=== PATIENT | male | born 1945 | race Caucasian/White ===

== ENCOUNTER 2017-11-13 08:36 | Day surgery (SDC) | payer MEDICARE ==
[~2017-11-13 08:36] MED LIST: ALLOPURINOL100 MG PO; AMLODIPINE10 MG PO; ASPIRIN EC81 MG PO; ATENOLOL100 MG; ATENOLOL100 MG PO; AVELOX400 MG OR; CIPRO XR500 MG PO; CIPROFLOXACN500 MG PO; COZAAR100 MG PO; FERROUS SULF325 M1 PO; FIBER THERAP0.52 GM PO; FLEXERIL PO; FLEXERIL10 MG PO; GABAPENTIN300 MG PO; HYDROCHLOROTH12.5 M1 PO; LEVAQUIN750 MG; LEVAQUIN750 MG PO; LORTAB 7.5 PO; LOSARTAN POT50 MG PO; METAMUCIL28.3 %; METFORMIN500 M1 OR; METFORMIN500 M1 PO; MILK THISTLE140 M1; MINOCYCLINE100 MG PO; MULTIVITAM10 OR; NAPROSYN500 MG PO; NEURONTIN300 MG OR; NEURONTIN600 MG OR; NEURONTIN600 MG PO; OCUVIT1; OCUVIT1 OR; PERCOCET 5/325M1 TAB PO; POTASSIUM; PRAVASTATIN10 MG PO; PRILOSEC20 MG; PRILOSEC20 MG OR; PRILOSEC20 MG PO; PRILOSEC20 MG/CAP PO; TENORMIN OR; TIZANIDINE2 MG PO; ZITHROMAX250 MG PO; ZOFRAN ODT4 MG SL; ZYLOPRIM300 MG OR; [UNRECOGNIZED DRUG - CODE]; allo OR
[2017-11-13 12:04] VITALS: BP 148/73
== END 2017-11-13 12:11 | disposition home or self-care (01) ==
LOC: ORM 08:36
PROVIDERS: ATTEND Surgery
PROC: 0DJDXZZ Inspection of Lower Intestinal Tract, External Approach (ICD-10-PCS; principal; 2017-11-13)
DX: K62.89 Other specified diseases of anus and rectum (principal)

== ENCOUNTER → 2018-07-02 | Outpatient (REF) | payer MEDICARE | END | disposition home or self-care (01) | LOC: NUCMED 07:30 → STRESS 07:33 | PROVIDERS: ATTEND Internal Medicine | DX: R00.2 Palpitations (principal); I20.9 Angina pectoris, unspecified | CPT/HCPCS: A9502; J2785 ==

== ENCOUNTER → 2018-07-08 | Outpatient (REF) | payer MEDICARE ==
[2018-07-08 09:38] LABS: ALBUMIN 4.1 g/dL (3.2-5.0); ALKALINE PHOSPHATASE 59 u/l (38-126); ANION GAP 16 (6-22 (CALC)); BILIRUBIN, TOTAL 0.6 mg/dL (0.0-1.4); BUN 14 mg/dL (8-23); BUN/CREATININE RATIO 15 (12-20 (CALC)); CARBON DIOXIDE 28 mmol/l (22-30); CHLORIDE 101 mmol/l (95-108); CREATININE 0.9 mg/dL (0.7-1.3); GFR > 60 ML/MIN (>=60 (CALC)); GFR FOR AFR.AMER. > 60 ML/MIN (>=60 (CALC)); POTASSIUM 4.5 mmol/l (3.5-5.1); SGOT/AST 28 u/l (19-48); SODIUM 140 mmol/l (137-146); TOTAL PROTEIN 7.1 g/dL (6.3-8.2)
== END | disposition home or self-care (01) ==
LOC: LAB 08:27
PROVIDERS: ATTEND Internal Medicine
DX: E11.42 Type 2 diabetes mellitus with diabetic polyneuropathy (principal)

== ENCOUNTER 2019-01-14 19:35 | Emergency (ER) | payer MEDICARE ==
[~2019-01-14] VITALS: Ht 175.3 cm; Wt 90.9 kg
[2019-01-14] MEDS ORDERED: TRAMADOL HCL50 MG PO (20:13)
[2019-01-14] MEDS ORDERED: ELIQUIS5 MG PO (20:14)
[2019-01-14] MEDS ORDERED: HYDROCO/APAP1 TA9 PO (20:14)
[2019-01-14 20:29] LABS: HEMATOCRIT 34.9 % (39.0-50.0); IMMATURE GRANULOCYTES 0.4 % (0.0-5.0); MEAN CELL VOLUME 101.5 fL CALC (80.0-100.0); MEAN CORPUSCULAR HGB 34.9 pG CALC (26.0-32.0); MEAN CORPUSCULAR HGB CONC 34.4 g/L CALC (32.0-36.0); NEUT# 4.47 thou/uL (1.82-7.42); RED BLOOD COUNT 3.44 mill/uL (4.70-6.10); RED CELL DISTRI WIDTH 14.6 % (11.5-15.5)
[2019-01-14 20:32] LABS: URINE BILIRUBIN - DIPSTICK NEGATIVE (NEGATIVE); URINE BLOOD DIPSTICK NEGATIVE (NEGATIVE); URINE COLOR YELLOW; URINE GLUCOSE - DIPSTICK NEGATIVE (NEGATIVE); URINE KETONE NEGATIVE (NEGATIVE); URINE LEUK ESTERASE NEGATIVE (NEGATIVE); URINE NITRITE - DIPSTICK NEGATIVE (Negative); URINE PROTEIN - DIPSTICK NEGATIVE (NEG-TRACE); URINE SPECIFIC GRAVITY 1.025; URINE UROBILINOGEN - DIPSTICK 0.2 E.U./dL (0.2)
[2019-01-14 20:46] LABS: ALBUMIN 4.2 g/dL (3.2-5.0); ALKALINE PHOSPHATASE 52 u/l (38-126); ANION GAP 16 (6-22 (CALC)); BILIRUBIN, TOTAL 0.8 mg/dL (0.0-1.4); BUN 13 mg/dL (8-23); BUN/CREATININE RATIO 17 (12-20 (CALC)); CARBON DIOXIDE 26 mmol/l (22-30); CHLORIDE 100 mmol/l (95-108); CREATININE 0.8 mg/dL (0.7-1.3); GFR > 60 ML/MIN (>=60 (CALC)); GFR FOR AFR.AMER. > 60 ML/MIN (>=60 (CALC)); POTASSIUM 4.2 mmol/l (3.5-5.1); SGOT/AST 20 u/l (19-48); SODIUM 137 mmol/l (137-146); TOTAL PROTEIN 7.2 g/dL (6.3-8.2)
[2019-01-14 20:57] LABS: MYOGLOBIN 32 ng/mL (0 - 121)
[2019-01-14 22:19] VITALS: BP 156/77
== END 2019-01-14 22:18 | disposition home or self-care (01) ==
LOC: ED 19:35
PROVIDERS: Family Medicine
DX: I26.99 Other pulmonary embolism without acute cor pulmonale (principal); G89.18 Other acute postprocedural pain; I10 Essential (primary) hypertension; E11.40 Type 2 diabetes mellitus with diabetic neuropathy, unspecified; Z79.84 Long term (current) use of oral hypoglycemic drugs; Z98.890 Other specified postprocedural states
CPT/HCPCS: Q9967

== ENCOUNTER 2019-04-13 17:11 | Emergency (ER) | payer MEDICARE ==
[~2019-04-13] VITALS: Ht 175.3 cm; Wt 90.9 kg
[~2019-04-13 17:11] MED LIST changes: +ELIQUIS5 MG PO; +HYDROCO/APAP1 TA9 PO; +TRAMADOL HCL50 MG PO
[2019-04-13 17:56] LABS: HEMATOCRIT 38.2 % (39.0-50.0); HEMOGLOBIN 13.2 g/dl (14.0-18.0); IMMATURE GRANULOCYTES 0.4 % (0.0-5.0); MEAN CORPUSCULAR HGB 32.4 pG CALC (26.0-32.0); MEAN CORPUSCULAR HGB CONC 34.6 g/L CALC (32.0-36.0); NEUT# 6.05 thou/uL (1.82-7.42); RED BLOOD COUNT 4.08 mill/uL (4.70-6.10); RED CELL DISTRI WIDTH 13.2 % (11.5-15.5)
[2019-04-13 17:58] LABS: MEAN CELL VOLUME 93.6 fL CALC (80.0-100.0)
[2019-04-13 18:14] LABS: ALBUMIN 4.2 g/dL (3.2-5.0); ALKALINE PHOSPHATASE 60 u/l (38-126); ANION GAP 17 (6-22 (CALC)); BUN 15 mg/dL (8-23); BUN/CREATININE RATIO 13 (12-20 (CALC)); CARBON DIOXIDE 26 mmol/l (22-30); CHLORIDE 96 mmol/l (95-108); CREATININE 1.1 mg/dL (0.7-1.3); ETHYL ALCOHOL 0 mg/dl (0-30); GFR > 60 ML/MIN (>=60 (CALC)); GFR FOR AFR.AMER. > 60 ML/MIN (>=60 (CALC)); POTASSIUM 3.8 mmol/l (3.5-5.1); SGOT/AST 33 u/l (19-48); SODIUM 135 mmol/l (137-146); TOTAL PROTEIN 7.6 g/dL (6.3-8.2)
[2019-04-13 18:23] LABS: BILIRUBIN, TOTAL 0.7 mg/dL (0.0-1.4)
[2019-04-13 20:31] LABS: URINE BILIRUBIN - DIPSTICK NEGATIVE (NEGATIVE); URINE BLOOD DIPSTICK NEGATIVE (NEGATIVE); URINE COLOR YELLOW; URINE GLUCOSE - DIPSTICK NEGATIVE (NEGATIVE); URINE KETONE NEGATIVE (NEGATIVE); URINE NITRITE - DIPSTICK NEGATIVE (Negative); URINE PH 5.5 (4.5-8.0); URINE PROTEIN - DIPSTICK NEGATIVE (NEG-TRACE); URINE SPECIFIC GRAVITY 1.025; URINE UROBILINOGEN - DIPSTICK 0.2 E.U./dL (0.2)
[2019-04-13 20:32] LABS: URINE LEUK ESTERASE SMALL (NEGATIVE)
[2019-04-13 20:46] LABS: URINE RBC 0-2 RBC/hpf (0-5)
[2019-04-13] MEDS ORDERED: ULTRAM50 M1 PO (21:41)
[2019-04-13] MEDS ORDERED: FLEXERIL PO (21:41)
[2019-04-13 22:09] VITALS: BP 113/55
== END 2019-04-13 21:55 | disposition home or self-care (01) ==
LOC: ED 17:11
DX: S06.9X9A Unspecified intracranial injury with loss of consciousness of unspecified duration, initial encounter (principal); M54.2 Cervicalgia; M54.6 Pain in thoracic spine; I10 Essential (primary) hypertension; E11.42 Type 2 diabetes mellitus with diabetic polyneuropathy; W01.0XXA Fall on same level from slipping, tripping and stumbling without subsequent striking against object, initial encounter; Z79.84 Long term (current) use of oral hypoglycemic drugs; Z86.711 Personal history of pulmonary embolism; R42 Dizziness and giddiness

== ENCOUNTER 2020-03-02 06:39 | Day surgery (SDC) | payer MEDICARE ==
[~2020-03-02] VITALS: Ht 175.3 cm; Wt 90.7 kg
[~2020-03-02 06:39] MED LIST changes: +ULTRAM50 M1 PO; +XARELTO20 MG PO
[2020-03-02 09:59] VITALS: BP 149/83
== END 2020-03-02 08:57 | disposition home or self-care (01) ==
LOC: ORM 06:39
PROVIDERS: ATTEND Anesthesiology Pain Medicine
DX: M54.5 Low back pain (principal); M12.9 Arthropathy, unspecified; M51.37 Other intervertebral disc degeneration, lumbosacral region; Z01.84 Encounter for antibody response examination

== ENCOUNTER 2020-04-08 15:10 | Inpatient (IN) | payer MEDICARE ==
[~2020-04-08] VITALS: Ht 175.3 cm; Wt 89.5 kg
[2020-04-08] VITALS (8 sets, daily range): BP systolic 139–160; BP diastolic 62–75
--- NOTE | 2020-04-08 15:10 | NUR ---
PATEINT ASSISTED OUT OF VEHICLE AND STRAIGHT TO ROOM 11 FOR BEDSIDE TRIAGE. MD NOTIFIED OF PATIENT STATUS
[2020-04-08] MEDS ORDERED: FLECAINIDE50 MG PO (15:28)
[2020-04-08] MEDS ORDERED: GABAPENTIN100 MG PO (15:28)
[2020-04-08] MEDS ORDERED: LOSARTAN POTASS50 MG PO (15:29)
[2020-04-08] MEDS ORDERED: ATENOLOL25 MG PO (15:29)
--- NOTE | 2020-04-08 16:00 | NUR ---
PT HAS NO COMPLAINTS WITHOUT ACUTE DISTRESS
[2020-04-08 16:02] LABS: HEMOGLOBIN 11.5 g/dl (14.0-18.0); IMMATURE GRANULOCYTES 0.6 % (0.0-5.0); MEAN CELL VOLUME 102.1 fL CALC (80.0-100.0); MEAN CORPUSCULAR HGB 34.5 pG CALC (26.0-32.0); MEAN CORPUSCULAR HGB CONC 33.8 g/dL CAL (32.0-36.0); NEUT# 3.06 thou/uL (1.82-7.42); RED BLOOD COUNT 3.33 mill/uL (4.70-6.10); RED CELL DISTRI WIDTH 12.6 % (11.5-15.5)
[2020-04-08 16:09] LABS: ALBUMIN 3.5 g/dL (3.2-5.0); ALKALINE PHOSPHATASE 64 u/l (38-126); ANION GAP 12 (6-22 (CALC)); BILIRUBIN, TOTAL 0.6 mg/dL (0.0-1.4); BUN 12 mg/dL (8-23); BUN/CREATININE RATIO 13 (12-20 (CALC)); CARBON DIOXIDE 29 mmol/l (22-30); CHLORIDE 96 mmol/l (95-108); CREATININE 0.9 mg/dL (0.7-1.3); GFR > 60 ML/MIN (>=60 (CALC)); GFR FOR AFR.AMER. > 60 ML/MIN (>=60 (CALC)); POTASSIUM 4.7 mmol/l (3.5-5.1); SGOT/AST 40 u/l (19-48); SODIUM 132 mmol/l (137-146); TOTAL PROTEIN 6.7 g/dL (6.3-8.2)
--- NOTE | 2020-04-08 17:33 | NUR ---
PT HAS NO COMPLAINTS WITHOUT DISTRESS
--- NOTE | 2020-04-08 18:19 | NUR ---
ATTEMPTED TO CALL FOR REPORT. PT CURRENTLY WITHOUT ACUTE DISTRESS
--- NOTE | 2020-04-08 18:26 | NUR ---
REPORT CALLED AND GIVEN TO LAURA DORANTES. WILL TRANSPORT PT
[2020-04-08 18:30] LABS: ANION GAP 10 (6-22 (CALC)); BUN 13 mg/dL (8-23); BUN/CREATININE RATIO 14 (12-20 (CALC)); CARBON DIOXIDE 30 mmol/l (22-30); CHLORIDE 96 mmol/l (95-108); CREATININE 0.9 mg/dL (0.7-1.3); GFR > 60 ML/MIN (>=60 (CALC)); GFR FOR AFR.AMER. > 60 ML/MIN (>=60 (CALC)); MAGNESIUM 1.3 mg/dL (1.6-2.3); POTASSIUM 4.6 mmol/l (3.5-5.1); SODIUM 131 mmol/l (137-146)
--- NOTE | 2020-04-08 18:40 | NUR ---
male pt received from to ICU via stretcher accompanied by Karen RN; pt 3 max assist to ambulate to bed; pt admits to weakness/ dizziness; admits to epigastric pressure rating 7/10; pt admits to nausea; report to Kaylan Giang LPN; monitoring attachments explained and connected; iv mag infusing per ER without complication;
--- NOTE | 2020-04-08 18:40 | NUR ---
74 yr old white male admitted to icu6 per stretcher from er. stood x2 assists. pt very stiff & has difficulty moving legs. assisted to bed. bed weight obtained. court monitor shows sinus rhythm pacs pvcs hr 80. #20 rac. mag continues. history obtained per pt & er record. oriented to room. fall precautions initiated.
--- NOTE | 2020-04-08 20:45 | NUR ---
assisted pt to stand to void. pt unsteady on feet initially. voided per urinel. urine spec sent to lab.
[2020-04-08 21:16] LABS: URINE BILIRUBIN - DIPSTICK NEGATIVE (NEGATIVE); URINE BLOOD DIPSTICK NEGATIVE (NEGATIVE); URINE CLARITY CLEAR; URINE GLUCOSE - DIPSTICK NEGATIVE (NEGATIVE); URINE KETONE TRACE mg/dL (NEGATIVE); URINE LEUK ESTERASE NEGATIVE (Negative); URINE NITRITE - DIPSTICK NEGATIVE (Negative); URINE PH 6.5 (4.5-8.0); URINE PROTEIN - DIPSTICK NEGATIVE (NEG-TRACE)
[2020-04-08 21:18] LABS: URINE COLOR DK. YELLOW
--- NOTE | 2020-04-08 22:00 | NUR ---
eyes closed. no distress. cardiac nurse specialist shows sinus rhythm ivcd pacs pvcs hr 72.
[2020-04-09] VITALS (12 sets, daily range): BP systolic 102–156; BP diastolic 49–92
--- NOTE | 2020-04-09 00:05 | NUR ---
lab notified of need for bc.
--- NOTE | 2020-04-09 00:45 | NUR ---
lab here. blood drawn.
--- NOTE | 2020-04-09 02:00 | NUR ---
eyes closed. no distress. potline monitor shows sinus rhythm hr 70.
--- NOTE | 2020-04-09 04:00 | NUR ---
lab here. blood drawn.
--- NOTE | 2020-04-09 05:00 | NUR ---
lab here. blood drawn.
[2020-04-09 05:06] LABS: HEMATOCRIT 33.5 % (39.0-50.0); HEMOGLOBIN 11.6 g/dl (14.0-18.0); IMMATURE GRANULOCYTES 0.2 % (0.0-5.0); MEAN CELL VOLUME 100.6 fL CALC (80.0-100.0); MEAN CORPUSCULAR HGB 34.8 pG CALC (26.0-32.0); MEAN CORPUSCULAR HGB CONC 34.6 g/dL CAL (32.0-36.0); NEUT# 2.79 thou/uL (1.82-7.42); RED BLOOD COUNT 3.33 mill/uL (4.70-6.10); RED CELL DISTRI WIDTH 12.3 % (11.5-15.5)
[2020-04-09 05:30] LABS: ANION GAP 10 (6-22 (CALC)); BUN 13 mg/dL (8-23); BUN/CREATININE RATIO 15 (12-20 (CALC)); CARBON DIOXIDE 28 mmol/l (22-30); CHLORIDE 97 mmol/l (95-108); CREATININE 0.8 mg/dL (0.7-1.3); GFR > 60 ML/MIN (>=60 (CALC)); GFR FOR AFR.AMER. > 60 ML/MIN (>=60 (CALC)); POTASSIUM 4.4 mmol/l (3.5-5.1); SODIUM 132 mmol/l (137-146)
[2020-04-09 05:37] LABS: MAGNESIUM 1.7 mg/dL (1.6-2.3)
--- NOTE | 2020-04-09 06:00 | NUR ---
eyes closed. no distress. child monitor shows sinus rhythm hr 60.
--- NOTE | 2020-04-09 07:00 | NUR ---
pt awake in bed; no apparent distress noted; pt offers no complaints; assessment completed at this time; pt alert and oriented; denies pain/ chest pain; denies n/v; resp even and unlabored; lungs clear; skin color wnl; ra; hr irreg; strong pulses; no edema noted; sr with freq freq pvc/pac on monitor; abd soft with bs present; no bm noted per senior writer; no urine to inspect at this time; urinal at bedside; pt admits to stress incontinence; #20 saline locked to rac; no redness or edema noted at site; healing incision to left upper chest wall s/p pacer placement 03/30/20; plan of care/ am meds explained; call light within reach; will continue to monitor
--- NOTE | 2020-04-09 08:10 | NUR ---
awake in bed; pt with complaints of nausea; some vomiting noted; iv intact; call light within reach; will continue to monitor
--- NOTE | 2020-04-09 08:33 | NUR ---
Dr Martines present at bedside to assess pt and discuss plan of care; pt noted with chills and shivers; temp 98.5; pt assisted to sit on side of bed; noted vomiting; made NPO; will continue to monitor
--- NOTE | 2020-04-09 09:50 | NUR ---
permission received from pt to update grand daughter Susan on condition; update provided; will continue to monitor
--- NOTE | 2020-04-09 10:00 | NUR ---
pt resting in bed on left side with eyes closed; no apparent distress noted; sr/st on monitor; call light within reach; will continue to monitor
--- NOTE | 2020-04-09 11:56 | NUR ---
pt transferred to radiology via wc with A DINORA Vee; nurse to remain with pt
--- NOTE | 2020-04-09 12:33 | NUR ---
pt returned from US in stable condition via wc accompanied by uCrt Vee LPN; pt tolerated procedure well; monitoring attachments reapplied; will continue to monitor
--- NOTE | 2020-04-09 14:06 | NUR ---
resting in bed with eyes closed; no apparent distress noted; pt easily aroused; offers no complains; paced/sr/pac/pvc on monitor; call light within reach; will continue to monitor
--- NOTE | 2020-04-09 16:07 | NUR ---
awake in bed; offers no complaints; iv intact; paced on monitor; call light within reach; will continue to monitor
--- NOTE | 2020-04-09 17:18 | NUR ---
pt noted with shivers/chills; temp assessed at 98.2; will continue to monitor
--- NOTE | 2020-04-09 18:18 | NUR ---
awake in bed; no apparent distress noted; paced on monitor; iv intact; pt offers no complaints; call light within reach
--- NOTE | 2020-04-09 19:45 | NUR ---
temp 102.4. tylenol 650mg po given. fluids encouraged. pt said "i don't want to drink too much because of my urine." pt referring to his incontinence. instructed pt not to worry about incont & to drink. pt verbalized understanding. pt requested oj & cranberry juice mixed-given. up to bedside chair x1 assist. pt is stronger & steadier tonite. alarm security or surveillance monitor shows sinus rhythm pacs pvcs ivcd hr 87. #20 rac saline lock. voids incont & urinal. fall precautions cont.
--- NOTE | 2020-04-09 21:00 | NUR ---
t 98.4. remains in bedside chair. drank another oj & cranberry mix.
--- NOTE | 2020-04-09 22:00 | NUR ---
asleep in chair. assisted to bed. didi atif.
[2020-04-10] VITALS (14 sets, daily range): BP systolic 90–123; BP diastolic 54–75
--- NOTE | 2020-04-10 00:01 | NUR ---
eyes closed. nad. site monitor shows sinus rhythm pacs pvcs ivcd hr 60.
--- NOTE | 2020-04-10 02:00 | NUR ---
resting quietly. resps even & unlabored. nad. claims account manager shows sinus rhythm pacs pvcs hr 72.
--- NOTE | 2020-04-10 05:30 | NUR ---
lab here. blood drawn.
--- NOTE | 2020-04-10 05:58 | NUR ---
housekeeping/laundry supervisor shows paced rhythm hr 60.
[2020-04-10 06:01] LABS: HEMATOCRIT 35.5 % (39.0-50.0); HEMOGLOBIN 11.9 g/dl (14.0-18.0)
[2020-04-10 06:27] LABS: ALBUMIN 3.2 g/dL (3.2-5.0); ALKALINE PHOSPHATASE 67 u/l (38-126); ANION GAP 10 (6-22 (CALC)); BILIRUBIN, TOTAL 0.6 mg/dL (0.0-1.4); BUN 15 mg/dL (8-23); BUN/CREATININE RATIO 16 (12-20 (CALC)); CARBON DIOXIDE 32 mmol/l (22-30); CHLORIDE 97 mmol/l (95-108); CREATININE 0.9 mg/dL (0.7-1.3); GFR > 60 ML/MIN (>=60 (CALC)); GFR FOR AFR.AMER. > 60 ML/MIN (>=60 (CALC)); MAGNESIUM 1.9 mg/dL (1.6-2.3); POTASSIUM 4.6 mmol/l (3.5-5.1); SGOT/AST 26 u/l (19-48); SODIUM 135 mmol/l (137-146); TOTAL PROTEIN 6.2 g/dL (6.3-8.2)
--- NOTE | 2020-04-10 07:05 | NUR ---
pt awake in bed; no apparent distress noted; pt offers no complaints; assessment completed at this time; pt alert and oriented; denies pain; no n/v noted; resp even and unlabored; lungs coarse/ rhonchi bases; skin color wnl; ra; drug room operator cough noted; hr reg; strong pulses; no edema noted; paced with pac/pvc/ underline sr on monitor; abd soft with bs present; no bm noted per senior grant writer; no urine to inspect at this time; urinal at bedside; pt also noted with stress incontinence; #20 saline locked to rac; no redness or edema noted at site; plan of care/ am meds explained; call light within reach; will continue to monitor
--- NOTE | 2020-04-10 08:01 | NUR ---
pt resting in bed with eyes closed; no apparent distress noted; paced on monitor; iv intact; call light within reach; will continue to monitor
--- NOTE | 2020-04-10 08:46 | NUR ---
Dr Martines present at bedside to assess pt and discuss plan of care
--- NOTE | 2020-04-10 10:00 | NUR ---
awake in bed; no apparent distress noted; paced on monitor; iv intact; bp reassessed; call light within reach; will continue to monitor
--- NOTE | 2020-04-10 12:25 | NUR ---
pt sitting on side of bed eating lunch; no apparent distress noted; paced on monitor; call light within reach; will continue to monitor
--- NOTE | 2020-04-10 13:56 | NUR ---
awake in bed; no apparent distress noted; resp even and unlabored; ra; paced on monitor; iv intact; call light within reach; will continue to monitor
--- NOTE | 2020-04-10 16:06 | NUR ---
awake in bed; no apparent distress noted; paced pvc on monitor; occ runs of tachycardia; iv intact; call light within reach; will continue to monitor
--- NOTE | 2020-04-10 18:14 | NUR ---
awake sitting on side of bed eating dinner; paced on monitor; iv intact and patent; abt infusing without complication; no redness or edema noted; pt offers no complaints; call light within reach
--- NOTE | 2020-04-10 19:20 | NUR ---
awake. watching tv. denies distress. cardiac nurse specialist shows pacer rhythm ivcd hr 64. #20 rac saline lock. po fluids encouraged. voids per urinal & incont. fall precautions cont.
--- NOTE | 2020-04-10 22:00 | NUR ---
eyes closed. graduation coach shows a fib hr 120. nad.
[2020-04-11] VITALS (8 sets, daily range): BP systolic 96–121; BP diastolic 57–71
--- NOTE | 2020-04-11 00:01 | NUR ---
eyes closed. nad. cardiac nurse specialist shows paced rhythm ivcd hr 64.
--- NOTE | 2020-04-11 02:00 | NUR ---
resting quietly. resps even & unlabored. nad. credentialing manager shows paced rhythm hr 60.
--- NOTE | 2020-04-11 04:00 | NUR ---
eyes closed. no distress. monitoring manager shows paced rhythm hr 60.
--- NOTE | 2020-04-11 05:30 | NUR ---
lab here. blood drawn.
[2020-04-11 06:00] LABS: HEMATOCRIT 33.7 % (39.0-50.0); HEMOGLOBIN 11.3 g/dl (14.0-18.0); IMMATURE GRANULOCYTES 0.5 % (0.0-5.0); MEAN CELL VOLUME 103.4 fL CALC (80.0-100.0); MEAN CORPUSCULAR HGB 34.7 pG CALC (26.0-32.0); MEAN CORPUSCULAR HGB CONC 33.5 g/dL CAL (32.0-36.0); NEUT# 2.65 thou/uL (1.82-7.42); RED BLOOD COUNT 3.26 mill/uL (4.70-6.10); RED CELL DISTRI WIDTH 12.3 % (11.5-15.5)
[2020-04-11 06:20] LABS: ANION GAP 11 (6-22 (CALC)); BUN 13 mg/dL (8-23); BUN/CREATININE RATIO 16 (12-20 (CALC)); CARBON DIOXIDE 30 mmol/l (22-30); CHLORIDE 98 mmol/l (95-108); CREATININE 0.8 mg/dL (0.7-1.3); GFR > 60 ML/MIN (>=60 (CALC)); GFR FOR AFR.AMER. > 60 ML/MIN (>=60 (CALC)); MAGNESIUM 1.6 mg/dL (1.6-2.3); POTASSIUM 4.1 mmol/l (3.5-5.1); SODIUM 135 mmol/l (137-146)
--- NOTE | 2020-04-11 06:45 | NUR ---
REPORT RECEIVED FROM MIK FARIAS. CARE ASSUMED.
--- NOTE | 2020-04-11 07:30 | NUR ---
PT SITTING UP ON SIDE OF BED AT THIS TIME. PT IS ALERT AND ORIENTED X3. SHIFT ASSESSMENT COMPLETED AT THIS TIME. IV PATENT X1. CALL LIGHT IN REACH. WILL CONTINUE TO MONITOR.
--- NOTE | 2020-04-11 08:03 | NUR ---
DR MORTENSEN AT BEDSIDE AT THIS TIME TO DISCUSS PLAN OF CARE.
--- NOTE | 2020-04-11 08:22 | NUR ---
Patient is screened for physical medicine intervention and no needs are identified at this time
--- NOTE | 2020-04-11 10:00 | NUR ---
PT RESTING IN BED WATCHING TV AT THIS TIME. RESP ARE EVEN AND UNLABORED. NO DISTRESS NOTED AT THIS TIME. CALL LIGHT IN REACH. WILL CONTINUE TO MONITOR.
[2020-04-11] MEDS ORDERED: MAG-200200 MG PO (10:05)
[2020-04-11] MEDS ORDERED: TOPROL XL50 MG PO (10:05)
[2020-04-11] MEDS ORDERED: AMOX/K CLAV875 M1 PO (10:13)
--- NOTE | 2020-04-11 10:59 | NUR ---
DISHCARGE INSTRUCTIONS REVIEWED WITH PATIENT. PATIENT VERBALIZED UNDERSTANDING. PT PHONED TO BE PICKE UP. IV DC'D AT THIS TIME. CATH TIP INTACT. PT TOLERATED WELL.
--- NOTE | 2020-04-11 11:10 | NUR ---
Discharge instructions given. Patient verbalizes understanding of same. Discharged in stable condition via Wheelchair to Home with family. All belongings sent with pt.
== END 2020-04-11 11:10 | disposition home or self-care (01) | DRG 310 ==
LOC: ED 15:10 → ED-I 16:27 → ED 17:11 → ICU 17:12
PROVIDERS: Family Medicine; ADMIT Internal Medicine; ATTEND Internal Medicine
DX: I47.2 Ventricular tachycardia (principal); E83.42 Hypomagnesemia; I48.0 Paroxysmal atrial fibrillation; R10.13 Epigastric pain; R11.2 Nausea with vomiting, unspecified; R50.9 Fever, unspecified; I10 Essential (primary) hypertension; E11.40 Type 2 diabetes mellitus with diabetic neuropathy, unspecified; M54.9 Dorsalgia, unspecified; M19.90 Unspecified osteoarthritis, unspecified site; Z95.0 Presence of cardiac pacemaker; Z79.899 Other long term (current) drug therapy; Z79.891 Long term (current) use of opiate analgesic; Z79.01 Long term (current) use of anticoagulants
CPT/HCPCS: J3475

== ENCOUNTER 2020-05-10 23:58 | Emergency (ER) | payer MEDICARE ==
[~2020-05-10] VITALS: Ht 175.3 cm; Wt 88.0 kg
[~2020-05-10 23:58] MED LIST changes: +AMOX/K CLAV875 M1 PO; +ATENOLOL25 MG PO; +FLECAINIDE50 MG PO; +GABAPENTIN100 MG PO; +LOSARTAN POTASS50 MG PO; +MAG-200200 MG PO; +TOPROL XL50 MG PO
[2020-05-11] MEDS ORDERED: LOSARTAN POTASS50 MG PO (00:52)
[2020-05-11 00:59] LABS: HEMOGLOBIN 12.7 g/dl (14.0-18.0); IMMATURE GRANULOCYTES 0.4 % (0.0-5.0); MEAN CELL VOLUME 104.1 fL CALC (80.0-100.0); MEAN CORPUSCULAR HGB 34.8 pG CALC (26.0-32.0); MEAN CORPUSCULAR HGB CONC 33.4 g/dL CAL (32.0-36.0); NEUT# 3.93 thou/uL (1.82-7.42); RED BLOOD COUNT 3.65 mill/uL (4.70-6.10); RED CELL DISTRI WIDTH 13.7 % (11.5-15.5)
[2020-05-11 01:31] LABS: ACT PARTIAL THROMBO TIME 31.4 SECONDS (20.0-32.5)
[2020-05-11 01:35] LABS: INTERNATIONAL NORMALIZED RATIO 1.5 RATIO (0.7-1.3); PROTHROMBIN TIME 14.7 SECONDS (9.0-12.5)
[2020-05-11 01:38] LABS: ALBUMIN 3.9 g/dL (3.2-5.0); ALKALINE PHOSPHATASE 74 u/l (38-126); AMYLASE 36 u/l (30-110); ANION GAP 16 (6-22 (CALC)); BILIRUBIN, TOTAL 0.3 mg/dL (0.0-1.4); BUN 8 mg/dL (8-23); BUN/CREATININE RATIO 8 (12-20 (CALC)); CARBON DIOXIDE 27 mmol/l (22-30); CHLORIDE 101 mmol/l (95-108); ETHYL ALCOHOL 142 mg/dl (0-30); GFR > 60 ML/MIN (>=60 (CALC)); GFR FOR AFR.AMER. > 60 ML/MIN (>=60 (CALC)); LIPASE 46 u/l (23-300); MAGNESIUM 1.6 mg/dL (1.6-2.3); POTASSIUM 4.4 mmol/l (3.5-5.1); SGOT/AST 29 u/l (19-48); SODIUM 140 mmol/l (137-146); TOTAL PROTEIN 7.1 g/dL (6.3-8.2)
[2020-05-11 04:45] VITALS: BP 158/75
== END 2020-05-11 04:50 ==
LOC: ED 23:58
DX: S12.600A Unspecified displaced fracture of seventh cervical vertebra, initial encounter for closed fracture (principal); S01.81XA Laceration without foreign body of other part of head, initial encounter; S40.012A Contusion of left shoulder, initial encounter; R07.9 Chest pain, unspecified; R55 Syncope and collapse; S60.511A Abrasion of right hand, initial encounter; R20.2 Paresthesia of skin; I10 Essential (primary) hypertension; E11.40 Type 2 diabetes mellitus with diabetic neuropathy, unspecified; W18.30XA Fall on same level, unspecified, initial encounter; Y92.009 Unspecified place in unspecified non-institutional (private) residence as the place of occurrence of the external cause; W01.0XXA Fall on same level from slipping, tripping and stumbling without subsequent striking against object, initial encounter; Y92.89 Other specified places as the place of occurrence of the external cause; Z79.84 Long term (current) use of oral hypoglycemic drugs; Z95.0 Presence of cardiac pacemaker; Z79.01 Long term (current) use of anticoagulants; Z20.822 Contact with and (suspected) exposure to COVID-19; Z86.711 Personal history of pulmonary embolism
CPT/HCPCS: L0120; Q9967

== ENCOUNTER 2020-05-13 12:50 | Inpatient (IN) | payer MEDICARE ==
[~2020-05-13] VITALS: Ht 175.3 cm; Wt 89.4 kg
[2020-05-13 13:38] VITALS: BP 145/73
[2020-05-13 14:13] LABS: HEMATOCRIT 38.5 % (39.0-50.0); HEMOGLOBIN 12.7 g/dl (14.0-18.0); IMMATURE GRANULOCYTES 0.4 % (0.0-5.0); MEAN CELL VOLUME 104.6 fL CALC (80.0-100.0); MEAN CORPUSCULAR HGB 34.5 pG CALC (26.0-32.0); NEUT# 6.73 thou/uL (1.82-7.42); RED BLOOD COUNT 3.68 mill/uL (4.70-6.10)
[2020-05-13 14:24] LABS: ALKALINE PHOSPHATASE 68 u/l (38-126); ANION GAP 14 (6-22 (CALC)); BUN 14 mg/dL (8-23); BUN/CREATININE RATIO 15 (12-20 (CALC)); CARBON DIOXIDE 32 mmol/l (22-30); CHLORIDE 96 mmol/l (95-108); GFR > 60 ML/MIN (>=60 (CALC)); GFR FOR AFR.AMER. > 60 ML/MIN (>=60 (CALC)); POTASSIUM 4.1 mmol/l (3.5-5.1); SGOT/AST 24 u/l (19-48); SODIUM 138 mmol/l (137-146); TOTAL PROTEIN 7.2 g/dL (6.3-8.2)
[2020-05-13 14:29] LABS: BILIRUBIN, TOTAL 0.8 mg/dL (0.0-1.4)
[2020-05-13 14:50] VITALS: BP 148/75
[2020-05-13] MEDS ORDERED: PROAIR HFA108 MCG/AC IN (15:04)
[2020-05-13] MEDS ORDERED: FLONASE AL50 MCG/AC1 NAB (15:05)
[2020-05-13] MEDS ORDERED: OMEPRAZOLE DR40 MG PO (15:06)
[2020-05-13] MEDS ORDERED: MAG-OXIDE200 MG PO (15:08)
[2020-05-13] MEDS ORDERED: LOPRESSOR50 M1 PO (15:09)
[2020-05-13 20:00] VITALS: BP 132/75
[2020-05-14] VITALS (7 sets, daily range): BP systolic 139–175; BP diastolic 72–84
[2020-05-15 04:00] VITALS: BP 161/83
[2020-05-15 06:13] LABS: HEMATOCRIT 35.7 % (39.0-50.0); HEMOGLOBIN 11.9 g/dl (14.0-18.0); MEAN CELL VOLUME 103.5 fL CALC (80.0-100.0); MEAN CORPUSCULAR HGB 34.5 pG CALC (26.0-32.0); MEAN CORPUSCULAR HGB CONC 33.3 g/dL CAL (32.0-36.0); RED BLOOD COUNT 3.45 mill/uL (4.70-6.10); RED CELL DISTRI WIDTH 13.3 % (11.5-15.5)
[2020-05-15 06:30] VITALS: BP 112/72; BP 163/79
[2020-05-15 06:31] LABS: ANION GAP 11 (6-22 (CALC)); BUN 14 mg/dL (8-23); BUN/CREATININE RATIO 18 (12-20 (CALC)); CARBON DIOXIDE 32 mmol/l (22-30); CHLORIDE 98 mmol/l (95-108); CREATININE 0.8 mg/dL (0.7-1.3); GFR > 60 ML/MIN (>=60 (CALC)); GFR FOR AFR.AMER. > 60 ML/MIN (>=60 (CALC)); POTASSIUM 4.2 mmol/l (3.5-5.1); SODIUM 136 mmol/l (137-146)
[2020-05-15 08:00] VITALS: BP 140/83; BP 148/78
[2020-05-15 11:03] VITALS: BP 126/64
[2020-05-15 14:27] VITALS: BP 141/76
[2020-05-15 20:00] VITALS: BP 167/90
[2020-05-16] VITALS (12 sets, daily range): BP systolic 99–177; BP diastolic 56–97
[2020-05-16 05:42] LABS: HEMATOCRIT 36.8 % (39.0-50.0); HEMOGLOBIN 12.4 g/dl (14.0-18.0); IMMATURE GRANULOCYTES 0.3 % (0.0-5.0); MEAN CELL VOLUME 102.5 fL CALC (80.0-100.0); MEAN CORPUSCULAR HGB 34.5 pG CALC (26.0-32.0); MEAN CORPUSCULAR HGB CONC 33.7 g/dL CAL (32.0-36.0); NEUT# 3.28 thou/uL (1.82-7.42); RED BLOOD COUNT 3.59 mill/uL (4.70-6.10); RED CELL DISTRI WIDTH 13.3 % (11.5-15.5)
[2020-05-16 06:06] LABS: ANION GAP 13 (6-22 (CALC)); BUN 13 mg/dL (8-23); BUN/CREATININE RATIO 17 (12-20 (CALC)); CARBON DIOXIDE 27 mmol/l (22-30); CHLORIDE 100 mmol/l (95-108); CREATININE 0.7 mg/dL (0.7-1.3); GFR > 60 ML/MIN (>=60 (CALC)); GFR FOR AFR.AMER. > 60 ML/MIN (>=60 (CALC)); POTASSIUM 4.1 mmol/l (3.5-5.1); SODIUM 137 mmol/l (137-146)
[2020-05-17] VITALS: BP 136/74
[2020-05-17 04:10] VITALS: BP 110/52
[2020-05-17 08:55] VITALS: BP 125/71
[2020-05-17 11:00] VITALS: BP 116/67
== END 2020-05-17 15:34 | disposition home health service (06) | DRG 312 ==
LOC: MS2 12:50
PROVIDERS: Internal Medicine; Nurse Practitioner; ADMIT Internal Medicine; ATTEND Internal Medicine
DX: I95.1 Orthostatic hypotension (principal); S12.600D Unspecified displaced fracture of seventh cervical vertebra, subsequent encounter for fracture with routine healing; S01.81XD Laceration without foreign body of other part of head, subsequent encounter; S40.012D Contusion of left shoulder, subsequent encounter; I10 Essential (primary) hypertension; E11.40 Type 2 diabetes mellitus with diabetic neuropathy, unspecified; I49.5 Sick sinus syndrome; I48.91 Unspecified atrial fibrillation; R41.0 Disorientation, unspecified; J44.9 Chronic obstructive pulmonary disease, unspecified; K21.9 Gastro-esophageal reflux disease without esophagitis; W19.XXXD Unspecified fall, subsequent encounter; Z86.711 Personal history of pulmonary embolism; Z95.0 Presence of cardiac pacemaker; Z79.01 Long term (current) use of anticoagulants
CPT/HCPCS: L0120; Q9967

== ENCOUNTER 2020-11-08 21:02 | Observation (INO) | payer MEDICARE ==
[~2020-11-08] VITALS: Ht 175.3 cm; Wt 88.0 kg
[~2020-11-08 21:02] MED LIST changes: +FLONASE AL50 MCG/AC1 NAB; +LOPRESSOR50 M1 PO; +MAG-OXIDE200 MG PO; +OMEPRAZOLE DR40 MG PO; +PROAIR HFA108 MCG/AC IN
[2020-11-08 21:45] LABS: IMMATURE GRANULOCYTES 0.4 % (0.0-5.0); MEAN CELL VOLUME 99.4 fL CALC (80.0-100.0); MEAN CORPUSCULAR HGB 34.1 pG CALC (26.0-32.0); MEAN CORPUSCULAR HGB CONC 34.3 g/dL CAL (32.0-36.0); NEUT# 2.24 thou/uL (1.82-7.42); RED BLOOD COUNT 3.37 mill/uL (4.70-6.10)
[2020-11-08 21:48] LABS: HEMATOCRIT 33.5 % (39.0-50.0); HEMOGLOBIN 11.5 g/dl (14.0-18.0)
--- NOTE | 2020-11-08 21:50 | NUR ---
PATIENT ARRIVED WITH C-COLLAR IN PLACE. C-COLLAR MAINTAINED
[2020-11-08] MEDS ORDERED: SLOW-MAG PO (21:58)
[2020-11-08 22:03] LABS: ALKALINE PHOSPHATASE 57 u/l (38-126); BUN 11 mg/dL (8-23); BUN/CREATININE RATIO 16 (12-20 (CALC)); CHLORIDE 107 mmol/l (95-108); CREATININE 0.7 mg/dL (0.7-1.3); ETHYL ALCOHOL 138 mg/dl (0-30); GFR > 60 ML/MIN (>=60 (CALC)); GFR FOR AFR.AMER. > 60 ML/MIN (>=60 (CALC)); SGOT/AST 28 u/l (19-48); SODIUM 137 mmol/l (137-146); TOTAL PROTEIN 6.1 g/dL (6.3-8.2)
[2020-11-08 22:06] LABS: ALBUMIN 3.1 g/dL (3.2-5.0); ANION GAP 12 (6-22 (CALC)); BILIRUBIN, TOTAL 0.1 mg/dL (0.0-1.4); CARBON DIOXIDE 21 mmol/l (22-30); POTASSIUM 3.3 mmol/l (3.5-5.1)
[2020-11-08 22:15] LABS: MYOGLOBIN 169 ng/mL (0 - 121)
--- NOTE | 2020-11-08 22:37 | NUR ---
PATIENT REPORTS PAIN IN VERTEBRAE #7 ON THE LEFT SIDE
--- NOTE | 2020-11-08 22:46 | NUR ---
3CM LACERATION WITH SUTURES INTACT TO LEFT SIDE OF FOREHEAD
--- NOTE | 2020-11-08 22:58 | NUR ---
TELE [address]OX [id number] IN USE
[2020-11-08 23:01] LABS: URINE BILIRUBIN - DIPSTICK NEGATIVE (NEGATIVE); URINE COLOR YELLOW; URINE GLUCOSE - DIPSTICK NEGATIVE (NEGATIVE); URINE KETONE NEGATIVE (NEGATIVE); URINE LEUK ESTERASE NEGATIVE (NEGATIVE); URINE PH 5.5 (4.5-8.0); URINE PROTEIN - DIPSTICK NEGATIVE (NEG-TRACE); URINE UROBILINOGEN - DIPSTICK 0.2 E.U./dL (0.2)
[2020-11-08 23:03] LABS: URINE BLOOD DIPSTICK NEGATIVE (NEGATIVE); URINE NITRITE - DIPSTICK NEGATIVE (Negative)
--- NOTE | 2020-11-08 23:08 | NUR ---
REPORT GIVEN TO JOSE E JOHNSON. PT LEAVING DEPARTMENT IN WHEELCHAIR BY YARITZA Childress LPN. NO DISTRESS. ALERT AND ORIENTED
--- NOTE | 2020-11-08 23:09 | NUR ---
TELEPHONE REPORT RECEIVED FROM Siomara JACKSON RN IN ED. ROOM 281 PREPARED BY Compa BENNETT CNA TO MICHELLE RAWLS.
[2020-11-08 23:10] VITALS: BP 155/75
--- NOTE | 2020-11-08 23:11 | NUR ---
PT ARRIVES TO UNIT @ 2311 VIA WC, ACCOMPANIED BY Nasir BUSBY LPN. PT ADMITTED TO ROOM 281.
--- NOTE | 2020-11-09 00:30 | NUR ---
SPOKE WITH DR. OSHEA TO REPORT PT'S C/O PAIN. PRN ANALGESIC ORDERS RECEIVED.
[2020-11-09 04:00] VITALS: BP 155/83
--- NOTE | 2020-11-09 05:29 | NUR ---
Petty RUEDA E MAIL SYSTEM ADMINISTRATOR AT BEDSIDE COLLECTING BLOOD SPECIMEN.
--- NOTE | 2020-11-09 08:00 | NUR ---
PT SLEEPING IN BED. VITALS AND ASSESSMENT DONE. PT IS ALERT AND ORIENTED. S1 AND S2 HEARD. LUNGS CLEAR, PEDAL PULSES EQUALLY STRONG BILATERALLY. IV PATENT AND HEALTHY. NO DISTRESS NOTED. CALL LIGHT WITHIN REACH.
[2020-11-09 11:13] VITALS: BP 191/87
[2020-11-09 12:03] LABS: MEAN CELL VOLUME 99.3 fL CALC (80.0-100.0); MEAN CORPUSCULAR HGB 33.3 pG CALC (26.0-32.0); MEAN CORPUSCULAR HGB CONC 33.6 g/dL CAL (32.0-36.0); RED BLOOD COUNT 4.44 mill/uL (4.70-6.10); RED CELL DISTRI WIDTH 14.2 % (11.5-15.5)
[2020-11-09 12:04] LABS: HEMATOCRIT 44.1 % (39.0-50.0); HEMOGLOBIN 14.8 g/dl (14.0-18.0)
--- NOTE | 2020-11-09 13:10 | NUR ---
PT AMBULATING WITH PHYSICAL THERAPY AT SIDE
--- NOTE | 2020-11-09 15:12 | NUR ---
Discharge instructions given. Patient verbalizes understanding of same. Discharged in stable condition via Wheelchair to Home with staff. All belongings sent with pt. Pt instructed to have sutures removed in 7 days, keeping the area clean dry and intact.
== END 2020-11-09 15:12 | disposition home or self-care (01) ==
LOC: ED 21:02 → ED-I 22:30 → ED 22:57 → MS2 22:58
PROVIDERS: Emergency Medicine; Nurse Practitioner; ADMIT Internal Medicine; ATTEND Internal Medicine
PROC: 0HQ1XZZ Repair Face Skin, External Approach (ICD-10-PCS; principal; 2020-11-08)
DX: S01.81XA Laceration without foreign body of other part of head, initial encounter (principal); F10.20 Alcohol dependence, uncomplicated; I10 Essential (primary) hypertension; E11.40 Type 2 diabetes mellitus with diabetic neuropathy, unspecified; I25.10 Atherosclerotic heart disease of native coronary artery without angina pectoris; R42 Dizziness and giddiness; I49.5 Sick sinus syndrome; J44.9 Chronic obstructive pulmonary disease, unspecified; I48.20 Chronic atrial fibrillation, unspecified; Y90.6 Blood alcohol level of 120-199 mg/100 ml; W01.0XXA Fall on same level from slipping, tripping and stumbling without subsequent striking against object, initial encounter; Y92.009 Unspecified place in unspecified non-institutional (private) residence as the place of occurrence of the external cause; Z91.81 History of falling; Z95.0 Presence of cardiac pacemaker; Z86.711 Personal history of pulmonary embolism; Z20.822 Contact with and (suspected) exposure to COVID-19; Z51.81 Encounter for therapeutic drug level monitoring; Z79.891 Long term (current) use of opiate analgesic
CPT/HCPCS: G0378

== ENCOUNTER 2021-02-08 17:48 | Emergency (ER) | payer MEDICARE ==
[~2021-02-08 17:48] MED LIST changes: +SLOW-MAG PO
[2021-02-08 18:45] LABS: HEMATOCRIT 41.3 % (39.0-50.0); HEMOGLOBIN 13.6 g/dl (14.0-18.0); IMMATURE GRANULOCYTES 4.1 % (0.0-5.0); MEAN CELL VOLUME 106.2 fL CALC (80.0-100.0); MEAN CORPUSCULAR HGB CONC 32.9 g/dL CAL (32.0-36.0); NEUT# 1.2 thou/uL (1.82-7.42); RED BLOOD COUNT 3.89 mill/uL (4.70-6.10); RED CELL DISTRI WIDTH 12.9 % (11.5-15.5)
[2021-02-08 18:50] LABS: ALBUMIN 3.7 g/dL (3.2-5.0); ALKALINE PHOSPHATASE 61 u/l (38-126); BILIRUBIN, TOTAL 0.7 mg/dL (0.0-1.4); BUN 10 mg/dL (8-23); BUN/CREATININE RATIO 8 (12-20 (CALC)); CARBON DIOXIDE 20 mmol/l (22-30); CHLORIDE 98 mmol/l (95-108); CREATININE 1.3 mg/dL (0.7-1.3); GFR 54 ML/MIN (>=60 (CALC)); GFR FOR AFR.AMER. > 60 ML/MIN (>=60 (CALC)); SODIUM 137 mmol/l (137-146); TOTAL PROTEIN 6.6 g/dL (6.3-8.2)
[2021-02-08 18:54] LABS: ANION GAP 22 (6-22 (CALC)); SGOT/AST 227 u/l (19-48)
[2021-02-08 19:07] LABS: MYOGLOBIN 540 ng/mL (0 - 121)
== END 2021-02-08 21:30 | disposition expired ==
LOC: ED 17:48
PROVIDERS: Emergency Medicine
PROC: 5A12012 Performance of Cardiac Output, Single, Manual (ICD-10-PCS; principal; 2021-02-08)
PROC: 0BH17EZ Insertion of Endotracheal Airway into Trachea, Via Natural or Artificial Opening (ICD-10-PCS; 2021-02-08)
DX: I46.9 Cardiac arrest, cause unspecified (principal); S00.83XA Contusion of other part of head, initial encounter; I10 Essential (primary) hypertension; E11.40 Type 2 diabetes mellitus with diabetic neuropathy, unspecified; I25.10 Atherosclerotic heart disease of native coronary artery without angina pectoris; F10.10 Alcohol abuse, uncomplicated; W19.XXXA Unspecified fall, initial encounter; Z91.81 History of falling; Z86.711 Personal history of pulmonary embolism; Z95.0 Presence of cardiac pacemaker; Z66 Do not resuscitate